=== PATIENT | female | born 1995 | race Caucasian/White ===

== ENCOUNTER 2019-06-07 00:38 | Inpatient (IN) | payer OTHER ==
[2019-06-07] MEDS ORDERED: Ringers Lactate 1,000 ML IV PRN (01:30)
[2019-06-07] MEDS ORDERED: BUTORPHANOL 1 MG/ML INJ IV PRN (01:30)
[2019-06-07] MEDS ORDERED: CARBOPROST TROME 250 MCG/ML IM PRN (01:30)
[2019-06-07] MEDS ORDERED: METHYLERGONOVINE 0.2MG/ML AMP IM PRN ×2 (01:30→19:09)
[2019-06-07] MEDS ORDERED: PROMETHAZINE 25 MG/ML VIAL IV PRN (01:30)
[2019-06-07] MEDS ORDERED: Ringers Lactate 1,000 ML IV SCH (02:00)
[2019-06-07] MEDS ORDERED: OXYTOCIN/LR 20 UNIT/1,000 ML BAG IV SCH ×2 (02:00→20:00)
[2019-06-07 02:40] LABS: Basophils % 0.3 % (0-1.3); Hematocrit 37.2 % (36.0-45.0); Lymphocytes % 15.9 % (15.3-44.8); MPV 9.3 fL (7.6-11.3)
[2019-06-07] MEDS ORDERED: OXYTOCIN 10 UNIT/ML ML IV ONE (17:29)
[2019-06-07] MEDS ORDERED: CARBOPROST TROME 250 MCG/ML IM ONE (17:29)
[2019-06-07] MEDS ORDERED: METHYLERGONOVINE 0.2MG/ML AMP IM ONE (17:29)
[2019-06-07] MEDS ORDERED: METOCLOPRAMIDE 10 MG/2mL INJ ONE (17:29)
[2019-06-07] MEDS ORDERED: NA CIT/CITRIC AC 30 ML ORAL UDC ONE (17:29)
[2019-06-07] MEDS ORDERED: FAMOTIDINE 20 MG/2 ML VIAL IV ONE (17:30)
[2019-06-07] MEDS ORDERED: CEFAZOLIN/SWI 2gm 2 GM/20 ML SYR ONE (17:30)
[2019-06-07] MEDS ORDERED: MORPHINE SULFATE/PF 1 MG/ML (10 ML AMP) ONE (18:05)
[2019-06-07] MEDS ORDERED: KETOROLAC 30 MG/ML INJ IV PRN ×2 (19:09→20:34)
[2019-06-07] MEDS ORDERED: KETOROLAC 30 MG/ML INJ IM PRN (19:09)
[2019-06-07] MEDS ORDERED: ACETAMINOPHEN 500 MG TAB PO PRN ×2 (19:09)
[2019-06-07] MEDS ORDERED: ONDANSETRON 4 MG/2 ML VIAL IV PRN (19:09)
[2019-06-07] MEDS ORDERED: BISACODYL 10 MG RECTAL SUPP RECT PRN (19:09)
[2019-06-07] MEDS ORDERED: DIPHENHYDRAMINE 25 MG TAB/CAP PO PRN (19:09)
[2019-06-07] MEDS ORDERED: CEFAZOLIN 1GM (PREMIX IV) 1 GM/50 ML BAG IV ONE (19:09)
[2019-06-07] MEDS ORDERED: IBUPROFEN 200 MG TAB PO PRN (19:09)
[2019-06-07] MEDS ORDERED: ONDANSETRON 4 MG (ODT) TAB PO PRN (19:09)
[2019-06-07] MEDS ORDERED: D5LR 1,000 ML with OXYTOCIN 20 UNIT IV SCH ×2 (20:00)
[2019-06-07] MEDS ORDERED: Oxycodone HCl/Acetaminophen 1 TAB TAB PO PRN (20:38)
[2019-06-07 22:11] LABS: RPR (Rapid Plasma Reagin) NON-REACT (NON-REACT)
[2019-06-08] MEDS ORDERED: CEFAZOLIN 2 GM in NA CHLORIDE 0.9% 100 ML IVPB ONE (02:00)
[2019-06-08] MEDS ORDERED: Ringers Lactate 1,000 ML IV ONE (07:48)
--- NOTE | 2019-06-08 09:55 | PN ---
Postoperatively, patient did quite well. H and H with minimal change. Lochia is normal. She has no t ambulated yet. We will get her up and start moving around. If all is well, we will discontinue th e Stone and IV around lunchtime. Full postoperative talk given and full postdischarge talk given, bu t we will go over those again tomorrow. Patient had some pruritus after the epidural, apparently non e now. If all goes well, we will send her home tomorrow. NAKUL/MARTY Voice ID: [id number] Report ID: [id number]
[2019-06-08] MEDS: IBUPROFEN 200 MG TAB PO PRN ×2 (10:03→21:14)
--- NOTE | 2019-06-08 10:07 | OP ---
Surgeon: Jon Hayes MD Indications: 24-year-old primigravida at 39 weeks 2 days, came in with ruptured membranes, 1 cm on a dmission. Negative beta strep screen. Was started on oxytocin, has been on 24 milliunits and is con tracting every 90 seconds to 2 minutes, progressed to 2.5, possibly 3, baby at -1 station has been fo r some hours and the cervix started becoming edematous. Baby still looks good on the monitor. She h as had 1 mg of Stadol. Options discussed including expectant management with the patient and family. including risk of infection, blood loss, anesthetic complications, injury to bladder, bow el, or ureter, postop complications, clots in legs, and pneumonia discussed. Patient knows fully wel l this does not constitute all the possible problems that could occur during or following surgery. P atient requested to proceed with section. We have discontinued the Pitocin. We will give h er 2 g of Ancef prophylactically, put in a Stone catheter, call Anesthesia, rehabilitation assistant surgeon, and sc rub personal, anticipated that we should be able to proceed with surgery within the next 45 minutes t o an hour. Diagnosis: At this point is failure to progress in labor. Last week patient had an ultrasound that demonstrated baby 8 pounds 9 ounces plus or minus a pound. We will see at the time of delivery. Family History: Noncontributory. Allergies: SHE HAS NO ALLERGIES. Physical Examination: Completely normal. HEENT: Clear. Pupils equal, round, and reactive to light and accommodation. Conjunctivae well perf used. No oral, lingual, or buccal lesions. Chest and Lungs: Clear. Heart: Without murmurs, thrills, heaves, or rubs. Breasts: Not examined. Abdomen: At term size. Extremities: +1 edema. Pelvic: As stated. We will proceed with primary section, failure to progress in labor. NAKUL/MARTY Voice ID: [id number] Report ID: [id number]
--- NOTE | 2019-06-08 10:10 | OP ---
Surgeon: Jon Hayes MD Building Performance Specialist: Og Roper M.D. Anesthesiologist: Dr. Martines. Indications: A 24-year-old primigravida at 39 weeks 2 days, came in with ruptured membranes. Baby v kelli high in the pelvis 1 cm. Negative beta strep screen. Started on Pitocin augmentation. Progress ed to 2-1/2, maybe 3, never brought the baby down past -1. After several hours of good contractions without progress. Patient requested . Infection, blood loss, anesthetic complications, inj ury to bladder, bowel, ureter, postoperative complications, clots in legs, and pneumonia discussed. Patient knows fully well this does not constitute all the possible problems that could occur during o r following surgery and knows that future since deliveries probably would be . Anesthesia: Spinal block anesthesia. Description Of Procedure: After spinal block prepping and draping, time-out was performed. Pfannens tiel incision was created. The incision was carried to the fascia. The fascia was incised and incis ion carried transversely bilaterally. Anterior and posterior fascial plane was developed with both b frances and sharp dissection. The underlying rectus muscle was , peritoneum entered. Low olmedo sverse bladder flap developed. Low transverse uterine incision created. An 8 pound 13 ounce female was delivered. Apgars 9 and 9. Cord blood specimen obtained. Placenta removed manually and noted t o be heavily calcified, but otherwise normal. Uterus exteriorized and closed with a running lock sti tch of 1 chromic. Mild hypotonus, 0.2 mg of Methergine IM. Estimated blood loss 1000 mL. After ini tial suturing, no further bleeding was seen, the gutters were clear of clot and blood, the uterus was replaced in the peritoneal cavity. Again suture line was inspected and noted to be intact. Muscles were reapproximated with 0 Vicryl, approximately 3 interrupted sutures. The fascia was closed with 1 PDS, running from either angle to the midline. Subcutaneous tissue closed with 3-0 plain. Absorba ble nikole placed and metal nikole. Two grams of Ancef had been given for prophylaxis. Patient to lerated all procedures well, transferred back to her room in good condition. Final Diagnoses: Term intrauterine at 39 weeks 2 days, failure to progress in labor, prima ry section, spinal block anesthesia, mild uterine hypotonus. NAKUL/MARTY Voice ID: [id number] Report ID: [id number]
--- NOTE | 2019-06-08 10:22 | PREOPHP ---
Date of Admission: 06/07/2019 This 24-year-old primigravida, 39 weeks 2 days, came in with spontaneous rupture of membranes, 1 cm v ertex very high, ina regularly, but very mildly. Rh positive, immune to Rubella. Negative b eta strep screen. Still approximately 1.5 cm, 60% effaced vertex, now is descended to -1 station. C ervix is still posterior. Fluid is clear. We have started her on Pitocin augmentation as patient is really not in good labor yet. Full labor talk given. Patient had an ultrasound last week to determ ine size, they said 8 pounds 9 ounces +/-1 pound 4 ounces. Patient was initially considering c esarean section, but now at this point says she wants to try labor. We will start her on process of trying for a vaginal delivery, but patient knows anywhere along line if she changes her mind, we will proceed with . Full labor talk given. NAKUL/MARTY Voice ID: [id number]
[2019-06-08] MEDS ORDERED: MAGNESIUM HYDROXIDE 8% 30 ML PO PRN (19:09)
[2019-06-08] MEDS: Oxycodone HCl/Acetaminophen 1 TAB TAB PO PRN (19:41)
[2019-06-08] MEDS ORDERED: IBUPROFEN 200 MG TAB PO PRN (21:01)
--- NOTE | 2019-06-09 08:41 | DS ---
This 24-year-old primigravida, 39 weeks 2 days, experienced spontaneous rupture of membranes. Came i nto labor and delivery, noted to be 1 cm with the vertex very high in the pelvis. She had ultrasound a week or so prior demonstrating 8 pound 9 ounce baby +/- 1 pound 5 ounces. Progressed to about 2.5 to 3 cm during her labor and in spite of good firm contractions every 2 minutes, 24 milliunits of Pi tocin at the top level, experienced secondary arrest of labor, requested primary section. I nfection, blood loss, anesthetic complications, injury to bladder, bowel, ureter, postoperative compl ications, clots in legs, and pneumonia discussed. The patient underwent primary section, lo w transverse cervical, spinal block anesthesia, with the delivery of an 8 pound 13 ounce female. Apg ars 9 and 9. Mild uterine hypertonus, 1000 cc blood loss estimated. 0.2 mg of Methergine as well as IV drip Pitocin and massage. Ancef given pre and postop for prophylaxis. Postoperatively, is afebr ile, ambulating and voiding. Will be dismissed later this morning, to report back to my office late this week or early next week for staple removal. To report any temperature elevation of 100 degrees or greater, severe pain, heavy bleeding, or any other type of abnormalities. Dismissed with tramadol for analgesia although she may elect to take Motrin instead and she has had her Tdap immunization du ring the but has an equivocal immunity to rubella, and will be offered rubella immunization . Full instructions given. Final Diagnoses: Intrauterine gestation, 39 weeks 2 days, failure to progress in labor, primary cesa rean section, mild uterine hypertonus. Rubella immunization offered. NAKUL/RAZIAL Voice ID: [id number] Report ID: [id number]
[2019-06-09] MEDS ORDERED: MEASLES,MUMPS,RUBELLA VAC 0.5ML SQVAC ONE (10:42)
[2019-06-09] MEDS: Oxycodone HCl/Acetaminophen 1 TAB TAB PO PRN (11:15)
[2019-06-10 15:26] LABS: HBsAG Nonreactive (Nonreactive)
== END 2019-06-09 11:45 | disposition home or self-care (01) | DRG 788 ==
LOC: L&D 00:38 → 2ND-WC 01:13
PROVIDERS: ADMIT Specialist; ATTEND Specialist
PROC: 10D00Z1 Extraction of Products of Conception, Low, Open Approach (ICD-10-PCS; principal; 2019-06-07 18:30)
DX: O66.40 Failed trial of labor, unspecified (principal); O62.0 Primary inadequate contractions; Z3A.39 39 weeks gestation of pregnancy; Z37.0 Single live birth; Z23 Encounter for immunization
CPT/HCPCS: 36415; 85014; 85025; 86592; 86850; 86900; 86901; 87340; 88307; 90471; 90707; J0595; J0690; J2210; J2550; J2590; J2765